=== PATIENT | female | born 1975 | race Caucasian/White ===

== ENCOUNTER 2018-09-21 02:45 | Emergency (ER) | payer OTHER ==
[~2018-09-21] VITALS: Ht 152.4 cm; Wt 70.5 kg
[2018-09-21 02:50] VITALS: Ht 152.4 cm; Wt 70.5 kg
[2018-09-21] MEDS ORDERED: CHRONULAC30 ML PO (04:23)
[2018-09-21 04:34] VITALS: BP 132/70
== END 2018-09-21 04:34 | disposition home or self-care (01) ==
LOC: D.ER 02:45
DX: K59.00 Constipation, unspecified (principal); R10.9 Unspecified abdominal pain